=== PATIENT | female | born 1970 | race Two or more races ===

== ENCOUNTER → 2024-05-13 09:01 | Outpatient (REF) | payer OTHER, SELFPAY | LOC: WDC 09:01 | PROVIDERS: ATTENDING PHYSICIAN Physician Assistant | DX: N64.59 Other signs and symptoms in breast (principal); L23.6 Allergic contact dermatitis due to food in contact with the skin; L28.2 Other prurigo | CPT/HCPCS: 76642; 77062; 77066 ==